=== PATIENT | female | born 1965 | race Caucasian/White ===

== ENCOUNTER 2016-10-01 10:04 | Emergency (ER) | payer OTHER ==
--- NOTE | ~2016-10-01 | CR21 ---
[facility] A Service of [facility] RADIOLOGY TEXT RESULTS PATIENT: MAXIME GÓMEZ LOCATION: SED : 63 UNIT #: [id number] AGE: [address]: FERNANDO TALLEY SEX: F ORDER DR: [id number] [place] [id number] E MR#: [id number] Acc #: [id number] NAME: MAXIME GÓMEZ. : 1965 SEX: F STUDY DATE/TIME: 10/01/2016 10:16 UNIT: SED ROOM: STUDY DESCRIPTION: CR Ankle Min 3 Views Rt Attending Physician: Fernando Talley Ordering Physician: Fernando Talley Primary Care Physician: Primary Care Physician No MEDICAL IMAGING REPORT This report is preliminary unless electronic signature is present. EXAM Ankle 3 views right HISTORY Pain after an injury today. Stepped down wrong and hurt right ankle with swelling and pain laterally. COMMENT Three views of the right ankle are reviewed. There is fracture of the distal lateral malleolus horizontally oriented with a few millimeters of displacement of the distal fracture fragment laterally. There is overlying soft tissue swelling. There is concern for some subtle widening at the medial ankle joint and please correlate for clinical evidence of medial ligamentous injury. There is a small plantar calcaneal spur. IMPRESSION 1. There is a horizontally oriented fracture at the distal lateral malleolus with minimal displacement. There is associated soft tissue swelling. 2. Concern for subtle asymmetric widening of the medial ankle joint and this raises concern for medial ligamentous injury. Please correlate clinically. Dictated by... Kary Keith M.D. THIS IS AN ELECTRONICALLY VERIFIED REPORT Kary Keith M.D. at 10/03/2016 8:39 AM ESTEBAN/shwetha TD: 10/02/2016 08:14 JOB #: [id number] [facility] A Service [facility] RADIOLOGY TEXT RESULTS PATIENT: MAXIME GÓMEZ LOCATION: SED : 63 UNIT #: [id number] AGE: [address]: FERNANDO TALLEY SEX: F ORDER DR: MEDICAL IMAGING REPORT Page 1 of 1
[~2016-10-01 10:04] MED LIST: LORTAB 2.5/5001 TAB PO; NO MEDICATIONS; PERCOCET 7.5-31 EACH PO
[2016-10-01] MEDS ORDERED: NO MEDICATIONS (10:14)
== END 2016-10-01 11:02 | disposition home or self-care (01) ==
LOC: SED 10:04
DX: S82.61XA Displaced fracture of lateral malleolus of right fibula, initial encounter for closed fracture (principal); F17.210 Nicotine dependence, cigarettes, uncomplicated; X50.1XXA Overexertion from prolonged static or awkward postures, initial encounter; Y92.009 Unspecified place in unspecified non-institutional (private) residence as the place of occurrence of the external cause
CPT/HCPCS: 73610; 99283